=== PATIENT | male | born 1980 | race Caucasian/White ===

== ENCOUNTER 2017-07-16 12:27 | Emergency (ER) | payer MEDICAID ==
[~2017-07-16] VITALS: Ht 175.3 cm; Wt 83.9 kg
[2017-07-16 13:35] VITALS: BP 155/106
== END 2017-07-16 14:47 | disposition home or self-care (01) ==
LOC: ER 12:27
DX: S63.91XA Sprain of unspecified part of right wrist and hand, initial encounter (principal); F41.9 Anxiety disorder, unspecified; J45.909 Unspecified asthma, uncomplicated; F17.210 Nicotine dependence, cigarettes, uncomplicated; Z88.0 Allergy status to penicillin; Z88.7 Allergy status to serum and vaccine; W22.01XA Walked into wall, initial encounter; Y93.89 Activity, other specified; Y99.8 Other external cause status; Y92.89 Other specified places as the place of occurrence of the external cause
CPT/HCPCS: 29125; 73110; 73130